=== PATIENT | female | born 1995 | race African-American/Black ===

== ENCOUNTER 2019-11-29 22:03 | Emergency (ER) | payer OTHER, SELFPAY ==
--- NOTE | ~2019-11-29 | US_ITS ---
EXAMINATION: US OB <= 14 weeks fetus DATE: 11/29/2019 23:44 INDICATION: Abdominal pain during first trimester TECHNIQUE: Real-time pelvic transabdominal and transvaginal ultrasound was performed. COMPARISON: None. FINDINGS: The uterus measures 10.2 x 6.3 x 7.2 cm. There is an intrauterine gestational sac. There i s a 2.8 x 1.1 x 0.5 cm hypoechoic area adjacent to the gestational sac. A yolk sac is identified. Fet al heart motion is identified measuring 142 beats per minute (bpm) by M-mode Doppler. The crown rump length measures 2.5 cm , which correlates with an estimated gestational age of 9 weeks and 1 da y(s) (+/-) 6 day(s). The right ovary measures 3.1 x 1.7 x 2.1 cm. The left ovary measures 1.5 x 1.1 x 1.2 cm. There is no free fluid in the pelvis. IMPRESSION: 1. Live intrauterine with an estimated gestational age of 9 weeks and 1 day(s) (+/-) 6 day( s) and an estimated delivery date of 07/02/2020. 2. Small subchronic hematoma. Reviewed, dictated and finalized at location A. [employer] IMPRESSION: 1. Live intrauterine with an estimated gestational age of 9 weeks and 1 day(s) (+/-) 6 day(s) and an estimated delivery date of 07/02/2020. 2. Small subchronic hematoma.
[2019-11-29 22:00] VITALS: BP 106/77; PULSE 105; RESP 20; TEMP 36.8; O2SAT 100
--- NOTE | 2019-11-29 22:01 | ED.ABDPAIN ---
HPI - Abdominal Pain General Chief Complaint: Abdominal Pain <Radha Walsh MD - Last Filed: 11/30/19 00:33> Stated Complaint: ABD PAIN PREG <Radha Walsh MD - Last Filed: 11/30/19 00:33> Time Seen by Provider: 11/30/19 00:46 <Radha Walsh MD - Last Filed: 11/30/19 00:33> Source: patient <Radha Walsh MD - Last Filed: 11/30/19 00:33> Mode of arrival: EMS <Radha Walsh MD - Last Filed: 11/30/19 00:33> Limitations: no limitations <Radha Walsh MD - Last Filed: 11/30/19 00:33> History of Present Illness HPI narrative: Patient is a 24-year-old female, G4, P3 currently 8 weeks dated by last menstrual period who presents for evaluation of abdominal pain over the past 4 days. Patient reports all over, aching, sharp abdominal pain throughout her abdomen. She has had a 4-day history of this. Patient denies any vaginal bleeding, loss of fluids, contraction-like pain. No recent intercourse. Patient reports painful urination. She follows at the [facility]. She has not yet been seen for this . <Radha Walsh MD - Last Filed: 11/30/19 00:33> Related Data Allergies/Adverse Reactions: Allergies Allergy/AdvReac Type Severity Reaction Status Date / Time No Known Allergies Allergy Verified 11/29/19 22:43 <Radha Walsh MD - Last Filed: 11/30/19 00:33> Review of Systems Review of Systems: Narrative: CONSTITUTIONAL: Denies fever, chills, or sweats. CARDIOVASCULAR: Denies chest pain, palpitations, or edema. RESPIRATORY: Denies cough or dyspnea. GASTROINTESTINAL: Reports abdominal pain, nausea, denies vomiting or diarrhea GENITOURINARY: Reports dysuria SKIN: Denies rash or itching. MUSCULOSKELETAL: Denies back pain, joint pain, or myalgia. NEUROLOGIC: Denies headache, numbness, or weakness. <Radha Walsh MD - Last Filed: 11/30/19 00:33> Exam Narrative: Exam Narrative: GENERAL: Well-appearing, well-nourished, and in no acute distress. HEAD: Normocephalic, atraumatic. EYES: PERRLA and EOMI. ENT: Nares clear, no rhinorrhea or epistaxis. Mucous membranes moist. NECK: Supple. CHEST: Clear to auscultation. No respiratory distress. HEART:borderline tachycardia and rhythm. No murmur heard. Normal peripheral pulses. ABDOMEN: Soft, mildly tender throughout abdomen, no focal right lower quadrant tenderness, no right upper quadrant tenderness, nondistended, normal active bowel sounds. /Pelvic: Labia majora and minora normal without lesions. Vagina without blood. No cervical motion tenderness. No adnexal tenderness or fullness bilaterally. Mucoid discharge present. EXTREMITIES: Normal range of motion. No edema. SKIN: Warm, dry, no rash. NEURO: No focal deficits. Alert and oriented x3 <Radha Walsh MD - Last Filed: 11/30/19 00:33> Course Course Emergency Course: Patient presented for evaluation of continued nausea, vomiting and abdominal pain in . Patient has not had confirmatory ultrasound at this point. She is mildly tender on exam, but very comfortable appearing without guarding or rigidity. Patient reporting some dysuria, but urinalysis not consistent with a UTI. Patient has no vaginal bleeding, cervical motion tenderness, or findings concerning for infection on pelvic exam. Patient with ketones present in her urine. No leukocytosis though be consistent with a severe intra-abdominal infection. Aside, I do not feel that pain is severe enough to warrant obtaining a CT scan as she does not have clinical symptoms of appendicitis or cholecystitis. Patient was given 2 L of IV fluids as well as dextrose with an fluid, Reglan, Tylenol. Patient then vomited at ultrasound, thus when she returned decided to go ahead and give the patient dose of Zofran. Patient is awaiting CMP, lipase and reassessment for p.o. intake. <Radha Walsh MD - Last Filed: 11/30/19 00:33> Vital Signs Vital signs: Vital Sig
[2019-11-29 22:24] VITALS: BP 115/64; PULSE 88
[2019-11-29 22:25] VITALS: BP 109/70; BP 115/86; PULSE 104; PULSE 113
[2019-11-29 22:32] LABS: Add Urine Microscopic? YES; Appearance Urine Cloudy (Clear); Bacteria Urine Trace /hpf; Bilirubin Urine Negative (Negative); Blood Urine Negative (Negative); Color Urine Yellow (Yellow); Glucose Urine UA Negative (Negative); Ketones Urine 2+ mg/dL (Negative); Leukocyte Esterase Ur Negative LEU/UL (Negative); Mucus Urine Rare /lpf; Nitrate Urine Negative (Negative); Protein Urine 2+ mg/dL (Negative); RBC Urine 0-2 /hpf (0-2); Squamous Epithelial Cell Urine Many /hpf (Few); WBC Urine 0-3 /hpf
[2019-11-29 22:36] LABS: Specific Grav Ur 1.031 (1.001-1.035)
--- NOTE | 2019-11-29 23:13 | PC.NURSE ---
Patient taken to US.
[2019-11-29 23:25] LABS: Basophils Percent Auto 0.2 % (0.2-1.2); Hematocrit 36.3 % (37.0-47.0); Hemoglobin 12.1 g/dL (12.0-15.0); Immature Granulocyte Absolute 0.01 K/mm3 (0.00-0.031); Immature Granulocyte Percent A 0.2 % (0-0.5); Lymphocytes Percent Auto 33.3 % (18.3-44.2); Mean Corpuscular HGB Conc 33.3 g/dl (32-36); Mean Corpuscular Hemoglobin 25.8 pg (26-34); Mean Corpuscular Volume 77.4 fl (80-100); Mean Platelet Volume 11.6 fl (7.4-10.4); Monocytes Absolute Auto 0.4 K/mm3 (0.1-0.6); Monocytes Percent Auto 9.8 % (2.6-8.5); Neutrophils Absolute Auto 2.6 K/mm3 (1.3-6.7); Neutrophils Percent Auto 56.5 % (45.5-73.1); Platelet Count Result 227 k/mm3 (150-375); Red Blood Count 4.69 M/mm3 (4.2-5.4); Red Cell Distribution Width 14.3 % (11.5-14.5); White Blood Count 4.5 K/mm3 (4.5-10.0)
[2019-11-29] MEDS: METOCLOPRAMIDE HCL INJ 10 MG/2 ML VIAL IV PUSH (23:44)
[2019-11-29] MEDS: SODIUM CHLORIDE 0.9% IV 1,000 ML 999 ML IV CONT (23:44)
[2019-11-29] MEDS: ACETAMINOPHEN 500 MG TABLET 1000 MG PO (23:44)
[2019-11-30] MEDS: FAMOTIDINE 20 MG/2 ML VIAL IV PUSH (00:45)
[2019-11-30] MEDS: ONDANSETRON INJ 4 MG/2 ML VIAL IV PUSH (00:45)
[2019-11-30 00:49] VITALS: BP 96/58; PULSE 89; RESP 16; O2SAT 98
--- NOTE | 2019-11-30 00:54 | PC.NURSE ---
Called main lab to get update on patient's labs. Kamryn stated she will have then resulted.
[2019-11-30 00:55] LABS: Alanine Aminotransferase 14 U/L (4-35); Albumin Level 4.5 g/dL (3.5-5.1); Alkaline Phosphatase 69 U/L (38-126); Aspartate Amino Transferase 27 U/L (14-36); Bilirubin,Total 0.5 mg/dL (0.2-1.3); Blood Urea Nitrogen 3 mg/dL (7-17); Calcium 9.1 mg/dL (8.4-10.2); Carbon Dioxide 12 mmol/L (22-30); Chloride 99 mmol/L (98-107); Estimated Glomerular Filt Rate > 60; Glucose 71 mg/dL (65-105); Lipase 44 U/L (23-300); Potassium 3.1 mmol/L (3.4-5.0); Sodium 132 mmol/L (137-145)
== END 2019-11-30 01:42 | disposition home or self-care (01) ==
PROVIDERS: Emergency Medicine; Emergency Provider Emergency Medicine
DX: O26.891 Other specified pregnancy related conditions, first trimester (principal); R10.9 Unspecified abdominal pain; O21.0 Mild hyperemesis gravidarum; O99.281 Endocrine, nutritional and metabolic diseases complicating pregnancy, first trimester; E86.0 Dehydration; Z3A.09 9 weeks gestation of pregnancy
CPT/HCPCS: 36415; 76801; 80053; 81001; 81025; 83690; 84702; 85025; 87070; 87491; 87591; 87808; 96361; 96374; 96375; 99284; A9270; J2405; J2765; J7030